=== PATIENT | male | born 1975 | race Caucasian/White ===

== ENCOUNTER 2016-11-11 13:43 | Emergency (ER) | payer SELFPAY ==
--- NOTE | 2016-11-11 14:09 | ER Document Report ---
ED Medical Screen (RME) - General Chief Complaint: Abdominal Pain Stated Complaint: ABDOMINAL PAIN Time Seen by Provider: 11/11/16 14:08 Notes: Patient has had abdominal pain and nausea and vomiting for couple of days. He feels like he may have a recurring episode of diverticulitis as his symptoms were the same with that illness 3 or 4 years ago. Not running any fever. Went to a local urgent care and was given an injection of what sounds like Phenergan for his nausea and sent here for further evaluation. Patient says the pain is excruciating at this time. TRAVEL OUTSIDE OF THE [place] IN LAST 30 DAYS: No - Related Data Allergies/Adverse Reactions: No Known Allergies Allergy (Unverified 11/11/16 13:58) Past Medical History Renal/ Medical History: Denies: Hx Peritoneal Dialysis Physical Exam - Vital signs Vitals: Temp Pulse Resp BP Pulse Ox 100.8 F H 92 22 H 108/46 L 97 11/11/16 13:58 11/11/16 13:58 11/11/16 13:58 11/11/16 13:58 11/11/16 13:58 Course - Vital Signs Vital signs: Temp Pulse Resp BP Pulse Ox 100.8 F H 92 22 H 108/46 L 97 11/11/16 13:58 11/11/16 13:58 11/11/16 13:58 11/11/16 13:58 11/11/16 13:58
[2016-11-11] MEDS ORDERED: MORPHINE SULFATE 10 MG/ML INJ IV ONE (14:10)
[2016-11-11] MEDS ORDERED: ONDANSETRON HCL INJ/PF 4 MG/2 ML SDV IV ONE (14:10)
[2016-11-11] MEDS: NORMAL SALINE 1000 ML 1,000 ML IV PRN ×2 (14:27→14:42)
[2016-11-11 14:31] LABS: MEAN CORPUSCULAR HGB CONC 35.3 g/dL (32.0-36.0); WHITE BLOOD COUNT 9.2 10^3/uL (4.0-10.5)
[2016-11-11 14:42] LABS: HEMATOCRIT 45.4 % (37.9-51.0); HGB HCT DIFFERENCE 2.6; MEAN CORPUSCULAR VOLUME 94 fl (80-97); RED BLOOD COUNT 4.85 10^6/uL (4.35-5.55); RED CELL DISTRIBUTION WIDTH 13.1 % (11.5-14.0)
[2016-11-11 14:45] LABS: ALANINE AMINOTRANSFERASE 33 U/L (21-72); ALBUMIN 4.9 g/dL (3.5-5.0); ALKALINE PHOSPHATASE 88 U/L (38-126); ANION GAP 16 (5-19); ASPARTATE AMINO TRANSFERASE 48 U/L (17-59); BILIRUBIN,DIRECT 0.6 mg/dL (0.0-0.4); BILIRUBIN,TOTAL 1.2 mg/dL (0.2-1.3); BLOOD UREA NITROGEN 10 mg/dL (7-20); CALCIUM 9.7 mg/dL (8.4-10.2); CARBON DIOXIDE 18 mmol/L (22-30); CHLORIDE 104 mmol/L (98-107); CREATININE RESULT 1.14 mg/dL (0.52-1.25); GLUCOSE 100 mg/dL (75-110); LIPASE 95.6 U/L (23-300); POTASSIUM 4.2 mmol/L (3.6-5.0); SODIUM 138.2 mmol/L (137-145); TOTAL PROTEIN 7.9 g/dL (6.3-8.2)
--- NOTE | 2016-11-11 14:47 | ER Document Report ---
ED GI/ - General Mode of Arrival: Ambulatory Information source: Patient TRAVEL OUTSIDE OF THE [place] IN LAST 30 DAYS: No - HPI Patient complains to provider of: Abdominal pain Onset: Other - last couple of days Location: Other - diffuse Associated symptoms: Fever, Vomiting Similar symptoms previously: Yes <ALISSA JOSHI - Last Filed: 11/11/16 14:54> <ANASTASIA MEZA - Last Filed: 11/12/16 00:17> - General Chief Complaint: Abdominal Pain Stated Complaint: ABDOMINAL PAIN Time Seen by Provider: 11/11/16 14:08 Notes: Patient is a 41 year old male that presents to the emergency department today with complaints of abdominal pain. Patient has a history of diverticulitis. Patient states his pain began a couple days ago. Patient states last night while trying to sleep he could not get comfortable last night. Patient states he felt hot and he believes he may have had a fever. Patient states the pain is diffusely spread across his abdomen. Patient states he has had intermittent vomiting and diarrhea. Patient has a history of abdominal surgeries. (ALISSA JOSHI) - Related Data Allergies/Adverse Reactions: No Known Allergies Allergy (Verified 11/11/16 15:07) Home Medications: Current Home Medications No Home Medications 11/11/16 [History] Past Medical History - General Information source: Patient - Social History Smoking Status: Former Smoker Cigarette use (# per day): No Chew tobacco use (# tins/day): No Frequency of alcohol use: Occasional Drug Abuse: None Lives with: Family Family History: Reviewed & Not Pertinent Patient has suicidal ideation: No Patient has homicidal ideation: No GI Medical History: Reports: Hx Diverticulitis Surgical Hx: Negative <ALISSA JOSHI - Last Filed: 11/11/16 14:54> Review of Systems - Review of Systems Constitutional: See HPI, Fever EENT: No symptoms reported Cardiovascular: No symptoms reported Respiratory: No symptoms reported Gastrointestinal: See HPI, Abdominal pain, Diarrhea, Vomiting Genitourinary: No symptoms reported Male Genitourinary: No symptoms reported Musculoskeletal: No symptoms reported Skin: No symptoms reported Hematologic/Lymphatic: No symptoms reported Neurological/Psychological: No symptoms reported -: Yes All other systems reviewed and negative <ALISSA JOSHI - Last Filed: 11/11/16 14:54> Physical Exam <ALISSA JOSHI - Last Filed: 11/11/16 14:54> <ANASTASIA MEZA - Last Filed: 11/12/16 00:17> - Vital signs Vitals: Temp Pulse Resp BP Pulse Ox 100.8 F H 92 22 H 108/46 L 97 11/11/16 13:58 11/11/16 13:58 11/11/16 13:58 11/11/16 13:58 11/11/16 13:58 - Notes Notes: PHYSICAL EXAM GENERAL: Alert, interacts well. No acute distress. HEAD: Normocephalic, atraumatic. EYES: Pupils equal, round, and reactive to light. Extraocular movements intact. ENT: Oral mucosa moist, tongue midline. NECK: Full range of motion. Supple. Trachea midline. LUNGS: Clear to auscultation bilaterally, no wheezes, rales, or rhonchi. No respiratory distress. HEART: Regular rate and rhythm. No murmurs, gallops, or rubs. ABDOMEN: Soft, non-tender. Non-distended. Bowel sounds present in all 4 quadrants. EXTREMITIES: Moves all 4 extremities spontaneously. No edema, radial and dorsalis pedis pulses 2/4 bilaterally. No cyanosis. NEUROLOGICAL: Alert and oriented x3. Normal speech. PSYCH: Normal affect, normal mood. SKIN: Warm to the touch, dry, normal turgor. No rashes or lesions noted. (ALISSA JOSHI) Course - Laboratory Result Diagrams: 11/11/16 14:19 11/11/16 14:19 <ALISSA JOSHI - Last Filed: 11/11/16 14:54> - Laboratory Result Diagrams: 11/11/16 14:19 11/11/16 14:19 <ANASTASIA MEZA - Last Filed: 11/12/16 00:17> - Re-evaluation Re-evalutation: 11/11/16 19:47 CBC unremarkable, CMP shows slight dehydration with a CO2 of 18, lipase normal, analysis shows trace ketones 80 and large blood, only 10 RBCs, patient was hydrated with normal saline. No stone no infection was seen on the CAT scan, there is a fluid-filled colon, it is possible this patient has infectious diarrhea. Discussed with family that I am not certain exactly what is causing his symptoms at this time, recommended using Imodium, using Zofran for control of nausea discharging to home. Return for continuing fevers, worsening pain or uncontrollable symptoms. (ANASTASIA MEZA) - Vital Signs Vital signs: Temp Pulse Resp BP Pulse Ox 98.6 F 92 26 H 106/72 97 11/11/16 20:05 11/11/16 13:58 11/11/16 20:05 11/11/16 20:07 11/11/16 20:06 - Laboratory Laboratory results interpreted by me: 11/11/16 11/11/16 11/11/16 14:19 14:19 16:40 Seg Neuts % (Manual) 87 H Band Neutrophils % 2 L Lymphocytes % (Manual) 5 L Carbon Dioxide 18 L Direct Bilirubin 0.6 H Urine Ketones 80 H Urine Blood LARGE H Discharge <ALISSA JOSHI - Last Filed: 11/11/16 14:54> <ANASTASIA MEZA - Last Filed: 11/12/16 00:17> - Discharge Clinical Impression: Diarrhea Qualifiers: Diarrhea type: presumed infectious Qualified Code(s): A09 - Infectious gastroenteritis and colitis, unspecified Abdominal pain Qualifiers: Abdominal location: generalized Qualified Code(s): R10.84 - Generalized abdominal pain Condition: Stable Disposition: HOME, SELF-CARE Additional Instructions: Abdominal Pain There are many causes of abdominal pain. Pain can mean a serious problem requiring surgery (such as appendicitis). It can also be an innocent problem that goes away on its own (such as a viral infection). Often, time must pass to determine the cause of pain. The physician does not feel that hospitalization is necessary, at present. Things may change within the next 24 hours. Call the doctor or come back for re- examination if any problems occur, such as: (1) Pain that becomes more severe, steady, or becomes concentrated in one specific area. Also, pain that is more severe with movement or coughing. (2) Vomiting that persists or becomes more frequent. (3) Blood in the vomitus, urine, or bowel movements. Blood in the stool may have a tarry or black appearance. (4) Shaking chills or fever greater than 100 degrees F. (5) The abdomen becomes more distended or swollen. (6) Bowel movements cease. (7) Failure to improve as expected. Diarrhea Diarrhea means frequent, watery stools. There are many causes. Any problem that keeps the intestinal tract from absorbing water from the stool can lead to diarrhea. A sudden new diarrhea problem is usually caused by a virus, food sensitivity, toxic bacteria, or drugs. In this case, we expect the problem to go away soon. Testing is done only if you seem seriously ill from the diarrhea. If you have chronic diarrhea, or diarrhea that keeps coming back, we need to find out why. Chronic diarrhea can be due to inflammation of the bowels such as Crohn's disease or ulcerative colitis, food sensitivity such as intolerance to lactose or wheat protein, irritable bowel syndrome, and other problems. If your diarrhea is a significant problem but it's not clear why you have it, we' ll refer you to a specialist for further testing. During an episode of diarrhea, drink small amounts (two to six ounces) of clear liquids (soft drinks, sport drinks, herb teas, broth, etc). Take fluids frequently to prevent dehydration. It's usually not a problem to take mild anti- diarrhea medication such as Kaopectate or Pepto-Bismol. As the diarrhea eases, advance to small amounts of bland food (mashed potato, toast) for 24 hours. Call the physician if blood appears in your vomit or stool, if vomiting lasts longer than 24 hours, if the abdominal pain worsens or becomes localized to one area, if you develop high fever, or if you become lightheaded and weak. Scribe Attestation: 11/12/16 00:17 I personally performed the services described in the documentation, reviewed and edited the documentation which was dictated to the scribe in my presence, and it accurately records my words and actions. (ANASTASIA MEZA) Scribe Documentation - Scribe Written by Marichuy:: Marichuy Napoles, 11/11/2016 1500 acting as scribe for :: Jd <ALISSA JOSHI - Last Filed: 11/11/16 14:54>
[2016-11-11 15:12] LABS: BAND NEUTROPHILS % (MANUAL) 2 % (3-5); BASOPHILS % (MANUAL) 0 % (0-2); EOSINOPHILS % (MANUAL) 0 % (0-6); LYMPHOCYTES % (MANUAL) 5 % (13-45); TOTAL CELLS COUNTED 100
[2016-11-11 15:13] LABS: RBC MORPHOLOGY COMMENT NORMO-CYTIC/CHROMIC
[2016-11-11 17:16] LABS: APPEARANCE,URINE CLEAR; BILIRUBIN,URINE NEGATIVE (NEGATIVE); GLUCOSE, URINE NEGATIVE (NEGATIVE); KETONES,URINE 80 mg/dL (NEGATIVE); LEUKOCYTE ESTERASE,URINE NEGATIVE (NEGATIVE); NITRITE,URINE NEGATIVE (NEGATIVE); PROTEIN,URINE NEGATIVE (NEGATIVE); URINE SPECIFIC GRAVITY 1.018; UROBILINOGEN,URINE NEGATIVE mg/dL (<2.0)
--- NOTE | 2016-11-11 18:00 | RADIOLOGY REPORT (SQ) ---
EXAM DESCRIPTION: CT ABD/PELVIS WITH IV ORAL COMPLETED DATE/TIME: 11/11/2016 5:21 pm REASON FOR STUDY: Abd pain with nausea, vomit, diarrhea, Hx divertic COMPARISON: None. TECHNIQUE: CT scan of the abdomen and pelvis performed using helical scanning technique with dynamic intravenous contrast injection. No oral contrast. Images reviewed with lung, soft tissue, and bone windows. Reconstructed coronal and sagittal MPR images reviewed. Delayed images for evaluation of the urinary system also acquired. All images stored on PACS. All CT scanners at this facility use dose modulation, iterative reconstruction, and/or weight based d osing when appropriate to reduce radiation dose to as low as reasonably achievable (ALARA). [facility]: Dose Right [facility]: CareDose [facility]: Dose Right [facility]: Teradose 4D [facility]: Webcrumbz CONTRAST TYPE AND DOSE: contrast/concentration: Isovue 370.00 mg/ml; Total Contrast Delivered: 100.0 ml; Total Saline Delivered: 40.0 ml RENAL FUNCTION: BUN 10, creatinine 1.14 RADIATION DOSE: Up-to-date CT equipment and radiation dose reduction techniques were employed. CTDIv ol: 10.8 - 16.2 mGy. DLP: 1544 mGy-cm.. LIMITATIONS: None. FINDINGS: LOWER CHEST: No significant findings. No nodules or infiltrates. LIVER: Normal size. No masses. No dilated ducts. SPLEEN: Normal size. No focal lesions. PANCREAS: No masses. No significant calcifications. No adjacent inflammation or peripancreatic fluid collections. Pancreatic duct not dilated. GALLBLADDER: No identified stones by CT criteria. No inflammatory changes to suggest cholecystitis. ADRENAL GLANDS: No significant masses or asymmetry. RIGHT KIDNEY AND URETER: No solid masses. No significant calcifications. No hydronephrosis or hyd roureter. LEFT KIDNEY AND URETER: No solid masses. No significant calcifications. No hydronephrosis or hydr oureter. AORTA AND VESSELS: No aneurysm. No dissection. Renal arteries, SMA, celiac without stenosis. RETROPERITONEUM: No retroperitoneal adenopathy, hemorrhage or masses. BOWEL AND PERITONEAL CAVITY: No obstruction. No inflammation. The descending colon is fluid-filled. APPENDIX: Normal. PELVIS: No mass. No free fluid. Normal bladder. ABDOMINAL WALL: No masses. No hernias. BONES: No significant or acute findings. OTHER: No other significant finding. IMPRESSION: NO SIGNIFICANT OR ACUTE FINDING IN THE ABDOMEN OR PELVIS ON CT SCAN WITH IV CONTRAST. TECHNICAL DOCUMENTATION: JOB ID: [id number] Quality ID # [id number]: Final reports with documentation of one or more dose reduction techniques (e.g., Au tomated exposure control, adjustment of the mA and/or kV according to patient size, use of iterative reconstruction technique) 2010 [employer]- All Rights Reserved
[2016-11-11] MEDS ORDERED: ONDANSETRON ODT 4 MG TAB (6 TAB/DSPK) PO PRN (19:48)
[2016-11-11] MEDS ORDERED: OXYCODONE-ACETAMINOPHEN 5-325 MG TABLET PO ONE (19:49)
[2016-11-11 20:12] VITALS: BP 106/72
== END 2016-11-11 21:13 | disposition home or self-care (01) ==
LOC: ER 13:43
DX: R19.7 Diarrhea, unspecified (principal); R10.84 Generalized abdominal pain; R11.10 Vomiting, unspecified; R50.9 Fever, unspecified; E86.0 Dehydration; Z87.19 Personal history of other diseases of the digestive system
CPT/HCPCS: 99284; 96361; 96374; 96375; 36415; 83690; 85025; 80053; 81001; 74177; J2270; J2405; J7030